=== PATIENT | male | born 1980 | race Two or more races ===

== ENCOUNTER 2017-12-12 20:30 | Emergency (ER) | payer SELFPAY ==
[~2017-12-12] VITALS: Ht 172.7 cm; Wt 77.1 kg
[~2017-12-12 20:30] MED LIST: NKM
[2017-12-12 20:40] VITALS: BP 139/87
--- NOTE | 2017-12-12 21:10 | Emergency Room Report ---
History of Present Illness General Chief Complaint: Alcohol Intoxication Source: Patient, EMS Present Illness HPI 37YOM BIBEMS for suspected ETOH intoxication Found on street Atraumatic +AOB HPI otherwise limited from intox No previous visits here Allergies: Coded Allergies: No Known Allergies (Unverified , 12/12/17) Patient History Past Medical History: none Past Surgical History: none Pertinent Family History: none Social History: Reports: alcohol use Immunizations: UTD Reviewed Nursing Documentation: PMH: Agreed, PSxH: Agreed Nursing Documentation-PMH Past Medical History: No Stated History Review of Systems All Other Systems: limited - by ETOH Physical Exam Vital Signs Date Time Temp Pulse Resp B/P (MAP) Pulse Ox O2 Delivery O2 Flow Rate FiO2 12/12/17 20:24 97.8 89 18 139/87 98 Room Air 97.9 Sp02 EP Interpretation: reviewed, normal General Appearance: normal inspection, well appearing, no apparent distress, alert, GCS 15, non-toxic, other - +AOB Head: normocephalic, atraumatic Eyes: bilateral eye PERRL, bilateral eye EOMI ENT: normal ENT inspection, hearing grossly normal, normal pharynx, no angioedema, normal voice, TMs + canals normal, uvula midline, moist mucus membranes Neck: normal inspection, full range of motion, supple, thyroid normal, no meningismus, no bony tend Respiratory: normal inspection, lungs clear, normal breath sounds, no rhonchi, no respiratory distress, no retraction, no accessory muscle use, no wheezing, speaking full sentences Cardiovascular #1: regular rate, rhythm, no edema, no JVD, normal capillary refill Gastrointestinal: normal inspection, normal bowel sounds, non tender, soft, no mass, no peritonitis, non-distended, no guarding, no hernia, no pulsatile mass Genitourinary: no CVA tenderness Musculoskeletal: normal inspection, back normal, normal range of motion, no calf tenderness, pelvis stable, Aidan's Sign negative Neurologic: normal inspection, alert, oriented x3, responsive, music arranger III-XII nml as tested, motor strength/tone normal, cerebellar normal, normal gait, speech normal Psychiatric: normal inspection, judgement/insight normal, mood/affect normal, no suicidal/homicidal ideation, no delusions Skin: normal inspection, normal color, no rash Lymphatic: normal inspection, no adenopathy Medical Decision Making Diagnostic Impression: Primary Impression: Acute alcoholic intoxication Qualified Codes: F10.929 - Alcohol use, unspecified with intoxication, unspecified ER Course VSS, afebrile Atraumatic Observed until sobriety Now ambulating with steady gait DC in morning - states he lives in the street. ER course: Patient has remained stable during ED stay. Disposition: Patient is to be discharged to home. Counseled on ETOH abuse Patient is instructed to follow up with their primary care doctor within 5 days. Strict return precautions discussed with patient such as fever, chills, worsening/severe pain, nausea, vomiting, which may indicate severe illness. Patient verbalizes understanding and agrees with plan. Please note that this Emergency Department Report was dictated using [employer] technology software, occasionally this can lead to erroneous entry secondary to interpretation by the dictation equipment Last Vital Signs Date Time Temp Pulse Resp B/P (MAP) Pulse Ox O2 Delivery O2 Flow Rate FiO2 12/12/17 20:40 97.9 78 18 139/87 98 Room Air 97.9 Status: improved Disposition: HOME, SELF-CARE MELISSA CARDENAS M.D. Dec 12, 2017 21:10
[2017-12-12 23:44] VITALS: BP 138/89
[2017-12-13 03:40] VITALS: BP 138/89
== END 2017-12-13 03:40 | disposition home or self-care (01) ==
LOC: EDBD 20:30 → EMR 21:18
DX: F10.129 Alcohol abuse with intoxication, unspecified (principal)
CPT/HCPCS: 99284